=== PATIENT | male | born 1955 | race Caucasian/White ===

== ENCOUNTER → 2016-10-13 | Outpatient (CLI) | payer OTHER | END | disposition home or self-care (01) | LOC: RAD.S 09-30 13:09 → PTH.S 12:23 | DX: E04.2 Nontoxic multinodular goiter (principal); E06.9 Thyroiditis, unspecified; R91.8 Other nonspecific abnormal finding of lung field ==

== ENCOUNTER → 2016-11-05 | Outpatient (CLI) | payer OTHER | END | disposition home or self-care (01) | LOC: PTH.S 09:53 → RAD.S 10:45 | DX: R20.0 Anesthesia of skin (principal) ==